=== PATIENT | female | born 1945 | race Caucasian/White ===

== ENCOUNTER 2017-03-01 19:36 | Inpatient (IN) | payer MEDICARE ==
--- NOTE | ~2017-03-01 | CN ---
Consultation Report [facility] [address] [place]. [address] NAME: CARLITOS WYMAN CORTEZ : 45 STATUS : ADM IN PAT#: [id number] AGE: 71 ADM/REG DATE : 03/01/17 MR#: [id number] REPORT SERV DATE: 03/02/17 DICTATED BY: INDIGO GARCIA III DATE: 03/02/17 REPORT STATUS : Draft TRANSCRIBED BY: MODL DATE: 03/02/17 CONSULTATION DATE OF CONSULTATION: 03/02/2017 HISTORY OF PRESENT ILLNESS: The patient is a 71-year-old white female with a 10-year history of multiple strokes and transient ischemic attacks. She has been in poor nutritional state for some time and has been at home on a hospital bed with an air mattress. She is admitted this time with pneumonia, sepsis, hypoxia and hypernatremia, but has been known to have decubitus ulcers of her hips and sacrum, which is the reason that Surgery and Wound Healing consult was requested. PAST MEDICAL HISTORY: She has had dementia, stroke and declining state of health according to her son, Wiliam, who is the second of four sons. She has had a history of blood clots, hypertension, high cholesterol. She had knee [place] [address] Hunt and has a history of significant arthritis and has had a cholecystectomy in the past. Has a history of anxiety disorder. HOME MEDICATIONS: Include Tylenol, Eliquis 5 mg twice a day, Celexa 20 mg daily. Recently started yesterday on clindamycin 150 mg t.i.d. and doxycycline 100 mg b.i.d., which have now been stopped. She has also been on Diflucan 150 mg daily, started yesterday as well. She also takes lisinopril 5 mg daily, melatonin 3 mg at bedtime, Lopressor 25 mg half a tablet twice a day, MS Contin 15 mg slow release every 12 hours, Percocet 7.5/325 twice a day, Zocor 10 mg at bedtime, and Santyl topically. The patient was admitted with sepsis and probable recurrent aspiration pneumonia, hypernatremia, dementia, late effects of CVA, and the hip ulcerations. The patient lives at home on a hospital bed with air mattress, and her is her main decision maker, assisted by the sons. The patient has reportedly been losing weight and being sustained on protein shakes. ALLERGIES: PENICILLIN. PHYSICAL EXAMINATION: GENERAL: She is an obtunded white female. No communication really elicitable. HEENT: Did not show lateralization. NECK: Quite stiff from osteoarthritic changes, presumably. MUSCULOSKELETAL: She was contractured in her trunk and extremities with flexion contractions of virtually every bendable area of her body. ABDOMEN: Soft, scaphoid, nontender with bowel sounds present. EXTREMITIES: Grossly atrophic. She has some abrasive changes of her heels bilaterally, but no true ulcerations. There is a small dry eschar on the lateral aspect of the right lateral foot that was not ulcerated per se. Her right hip shows a 5 x 3 x 3 stage IV soupy ulcer that tunneled about 2.5 cm at 6 o'clock position. This was quite deeply involving the Consultation Report [address] [place]. [address] NAME: CARLITOS WYMAN CORTEZ : 45 STATUS : ADM IN [facility]#: [id number] AGE: 71 ADM/REG DATE : 03/01/17 MR#: [id number] REPORT SERV DATE: 03/02/17 DICTATED BY: INDIGO GARCIA III DATE: 03/02/17 REPORT STATUS : Draft TRANSCRIBED BY: HEMANT DATE: 03/02/17 subcutaneous tissue down to the fascia. It was minimally tender with minimal induration around it. The sacral ulcer is 2.3 x 2.5 x 0.1 stage II decubitus changes with redness in a 4 cm diameter area, but some breakdown of the dermis in the central portion for the ulceration described. The left hip has a 2.1 x 2.0 x 0.2 stage III decubitus ulcer, which was with some erythema about 1 cm around the edges of the ulceration. Her pulses were present, but diminished in her pedal areas. LABORATORY DATA: Showed a low albumin. CBC with a white count which is 8.0, her hemoglobin and hematocrit 12.3 and 37.6, and platelets 267,000. IMPRESSION: She has multiple decubitus ulcers secondary to her strokes and malnutrition. Do not think aggressive heroic therapy would be indicated in this patient. Primarily, palliative care is the best option. With her nutritional status so adversely affected, healing these ulcers would hardly be an expectation. Discussed the situation with her son, Wiliam, who was present and advised them as above that the patient needed more comfort measures than aggressive debridement and therapy to the ulcers and the decision on the amount of aggression will be decided upon by the family. A feeding tube and nutritional support forcefully administered was not what the patient's son said that she had indicated that she would be willing to accept when she was more able to communicate. Orders will be left for care, including a Clinitron bed, Iodosorb gel to the right hip ulcer with packing with Iodosorb Santyl to the left hip and sacral areas with Mepitel covering on all three and heel protectors. There is no need for aggressive debridement on these ulcers at this time. JANNETTE/HEMANT Indigo Garcia III, M.D. / [id number] CC: Dick Witt M.D. [facility]
--- NOTE | ~2017-03-01 | DS ---
Discharge Summary [facility] [address] [place]. [address] NAME: CARLITOS WYMAN CORTEZ : 45 STATUS : DIS IN PAT#: [id number] AGE: 71 ADM/REG DATE : 03/01/17 MR#: [id number] REPORT SERV DATE: 03/05/17 DICTATED BY: ALETHEA TIRADO DATE: 03/04/17 REPORT STATUS : Draft TRANSCRIBED BY: MODL DATE: 03/04/17 ADMISSION DATE: 03/01/2017 DISCHARGE DATE: 03/04/2017 DISCHARGE DIAGNOSES: 1. Sepsis, present on admission. 2. Recurrent aspiration pneumonia. 3. Severe oropharyngeal dysphagia with deep penetration and/or silent aspiration of all consistencies on modified barium swallow. 4. Previous stroke with left hemiparesis. 5. Dementia. 6. Multiple decubitus ulcers. 7. Severe protein-calorie malnutrition. 8. Failure to thrive. 9. Hyponatremia. 10.Chronic pain syndrome. 11.Hypotension. 12.History of Crohn disease. 13.History of colon polyps. 14.History of DVT, on chronic Eliquis. 15.History of bowel and bladder incontinence. 16.History of rheumatoid arthritis. 17.History of recurrent urinary tract infections. 18.History of renal stones requiring lithotripsy. 19.History of anxiety and depression. OPERATIONS AND PROCEDURES: None. PRESENT ILLNESS: This is a 71-year-old white female who was triaged in the emergency room on 03/01/2017 at 1936 hours with shortness of breath and an O2 saturation of 89%. After evaluation in the emergency room, she was found to have an infiltrate on chest x-ray. She was referred to the Hospitalist Service for admission. She was seen by Dr. Baljeet Bynum and admitted as described on admission history and physical examination. Additional history included a several-month history of poor p.o. intake with strangling and choking on foods that led to a recent hospitalization at [facility] in January. She was hospitalized from 02/25/2017 to 02/28/2017. At the time of discharge, she still had pulmonary congestion according to her . At home, she had a temperature to 101. She was seen by Home Health Care and sent back to the hospital for further evaluation. Additional history included gradual progression of bilateral hip decubitus ulcers. ADDITIONAL HISTORY: Per Dr. Bynum. Discharge Summary [place] [place] [address] [place]. [address] NAME: CARLITOS WYMAN CORTEZ : 45 STATUS : DIS IN PAT#: [id number] AGE: 71 ADM/REG DATE : 03/01/17 MR#: [id number] REPORT SERV DATE: 03/05/17 DICTATED BY: ALETHEA TIRADO DATE: 03/04/17 REPORT STATUS : Draft TRANSCRIBED BY: HEMANT DATE: 03/04/17 PHYSICAL EXAMINATION: Per Dr. Bynum. ADMISSION LABORATORY: Per Dr. Bynum. HOSPITAL COURSE: She was admitted with: 1. Sepsis. 2. Recurrent aspiration pneumonia. 3. Hypernatremia. 4. Bilateral hip and sacral decubitus ulcers. 5. All the above occurring in the setting of the above-mentioned comorbidities. She was admitted to [address] [place] [address]. Cultures were obtained. She was started on IV cefepime and vancomycin. She was placed on D10. Wound Care consultation was obtained with Dr. Garcia. A DNR discussion with the patient's was done, and she was placed DNR limited. Her hospitalist care was by Dr. Witt on 03/02/2017 and 03/03/2017 and the undersigned on 03/04/2017. Dr. Garcia's impression was multiple decubitus ulcer secondary to strokes and malnutrition. He did not think aggressive heroic therapy was indicated. He suggested palliative care. He suggested a Clinitron bread, Iodosorb gel to the right hip ulcer with packing with Iodosorb Santyl to the left hip and sacral areas with Mepilex covering all three and heel protection. A modified barium swallow study was done on 03/03/2017. She exhibited deep penetration and/or silent aspiration of all consistencies presented. Strict n.p.o. status versus palliative care was recommended. Dr. Witt spoke with the patient's . Based on previous discussions with the patient, a PEG tube was not an option. Hospice consultation was recommended. The agreed. She was seen by [facility] on 03/03/2017. The agreed to hospice services at home. She was seen by me today in the presence of her . Her evaluation was reviewed. Hospice decision was reviewed. Speech therapy evaluation and treatment recommendations were reviewed. Her understood all the above and wanted to pursue with home with hospice. She is being discharged home with hospice today. Medications per Hospice. Discharge time greater than 30 minutes. DD/MODL Alethea Discharge Summary [address] [place] [address] NAME: CARLITOS WYMAN CORTEZ : 45 STATUS : DIS IN PAT#: [id number] AGE: 71 ADM/REG DATE : 03/01/17 MR#: [id number] REPORT SERV DATE: 03/05/17 DICTATED BY: ALETHEA TIRADO DATE: 03/04/17 REPORT STATUS : Draft TRANSCRIBED BY: HEMANT DATE: 03/04/17 [place] / [id number] CC: Alethea Tirado M.D.
--- NOTE | ~2017-03-01 | HP ---
History And Physical [place] [address] [facility] [place]. [address] NAME: CARLITOS WYMAN CORTEZ : 45 STATUS : ADM IN [facility]#: [id number] AGE: 71 ADM/REG DATE : 03/01/17 MR#: [id number] REPORT SERV DATE: 03/02/17 DICTATED BY: REIC KHAN DATE: 03/01/17 REPORT STATUS : Draft TRANSCRIBED BY: MODL DATE: 03/01/17 DATE OF ADMISSION: 03/01/2017 CHIEF COMPLAINT: A 71-year-old female debilitated from stroke and dementia, now presenting with pressure sores and recurrent aspiration pneumonia. HISTORY OF PRESENT ILLNESS: The patient's history was obtained through careful interview with the patient's coupled with review of [facility] medical records. The patient was unable to provide a history herself. The patient has suffered strokes in the past and apparently a stroke in October 2016 left the patient even more debilitated with increasing dysphagia as well. Over these last few months, the patient has had difficulty with dietary intake, some times strangling and choking on food, and it seems that this has led to a recent problem with breathing and coughing for which she had to go to the hospital at [facility] on 02/25/2017. When she was hospitalized there, she was diagnosed with aspiration pneumonia and urinary tract infection. She was hospitalized between 02/25/2017 and 02/28/2017 with antibiotics and supportive care. Although she improved somewhat, she still had a "rattle in her chest" according to the . She was able to come home just on the night prior to admission and immediately began to spike fevers again up to 101.0. She took Tylenol overnight and seemed to feel better. Then, on the day of admission, Home Health Care came to visit the patient, they found a fever of 101.2, increasing shortness of breath and cough, and the patient just looking very debilitated and ill and felt she had to come back to the hospital. Over these last few months, the patient has had gradual progression of bilateral hip decubitus ulcers, the right seems to be worse than the left, and there has been outpatient discussion regarding wound VAC placement through a wound care center near [place], [place]. Because the patient has been rotated from one hip to the other, she has also developed a sacral decubitus ulcer as well. The patient has chronic back pain, seems to have pain related to her decubitus ulcers, but when she does communicate with her about pain, she states "its all over." She is unable to describe a precise quality, location, or severity of pain because of dementia. The claims she has not had a significant bowel movement since 02/13/2017. She definitely has no diarrhea. No nausea or vomiting. He believes this recent illness has increased her baseline confusion, and now it has gotten to a point where sometimes she does not even recognize her . REVIEW OF SYSTEMS: Otherwise, a 14-point review of systems was obtained and was negative although could question validity in light of the patient's inability to answer for herself. History And Physical [place] [address] [facility] [place]. [address] NAME: CARLITOS WYMAN CORTEZ : 45 STATUS : ADM IN [facility]#: [id number] AGE: 71 ADM/REG DATE : 03/01/17 MR#: [id number] REPORT SERV DATE: 03/02/17 DICTATED BY: EIRC KHAN DATE: 03/01/17 REPORT STATUS : Draft TRANSCRIBED BY: HEMANT DATE: 03/01/17 PAST MEDICAL HISTORY: 1. Stroke with debilitation, most recently in 10/2016. 2. Pneumonia. 3. Hypertension. 4. Crohn's disease, seen by Dr. Prakash Boogie. 5. Dementia. 6. DVT, 2011, on chronic Eliquis. 7. Anxiety/depression. 8. Nephrolithiasis. 9. Chronic back pain, on chronic pain management. 10.Rheumatoid arthritis. 11.Peptic ulcer disease. 12.Urinary tract infections. 13.Group B strep cellulitis. 14.Colon polyps. 15.Dysphagia with modified diet. 16.Sacral and hip decubitus ulcers. 17.Bladder and bowel incontinence. PAST SURGICAL HISTORY: 1. Right knee surgery. 2. Cholecystectomy. ALLERGIES: TO PENICILLIN. SOCIAL HISTORY: She has never been a smoker herself but has been exposed to secondhand tobacco from her . She is and her is her primary care provider at home. She has children, 13 grandchildren, and 3 great grandchildren. She used to drink occasional alcohol before her recent illness. She is wheelchair bound now. She lives in [place], [place]. FAMILY HISTORY: Diabetes, stroke, and heart disease. CURRENT MEDICATIONS: Include Eliquis 5 mg p.o. b.i.d., Celexa 20 mg daily, clindamycin 150 mg p.o. t.i.d., doxycycline 100 mg p.o. b.i.d., Diflucan 150 mg p.o. daily, lisinopril 5 mg p.o. daily, melatonin 3 mg p.o. daily, Lopressor 12.5 mg p.o. b.i.d., MS Contin 15 mg p.o. b.i.d., Percocet p.r.n., Zocor 10 mg p.o. daily, and Santyl applied. PHYSICAL EXAMINATION: VITAL SIGNS: Temperature 101.0, pulse 101, blood pressure 103/78, respiratory rate 18, and O2 saturation 89% on room air. GENERAL: A debilitated and chronically ill-appearing female, even cachectic in appearance, but in no evidence of acute distress. HEENT: Pupils equal, round, and reactive to light. No conjunctival pallor. No scleral icterus. Nares are patent. Oropharynx is clear of obstruction. Moist mucous membranes. NECK: Trachea midline. No thyromegaly. LYMPH: No cervical lymphadenopathy. No supraclavicular lymphadenopathy. History And Physical [address] [address] NAME: CARLITOS WYMAN CORTEZ : 45 STATUS : ADM IN [facility]#: [id number] AGE: 71 ADM/REG DATE : 03/01/17 MR#: [id number] REPORT SERV DATE: 03/02/17 DICTATED BY: ERIC KHAN DATE: 03/01/17 REPORT STATUS : Draft TRANSCRIBED BY: HEMANT DATE: 03/01/17 RESPIRATORY: Scattered rhonchi are what predominate on exam. No rales. I do not appreciate any wheezes. She will not comply with examination for egophony testing. She has a nonlabored respiratory effort though. CARDIOVASCULAR: Tachycardic. Regular rhythm. No murmurs, rubs, or gallops. No extremity edema is appreciated. ABDOMEN: Soft, nontender, and nondistended. Normal bowel sounds auscultated throughout. No hepatosplenomegaly. DERMATOLOGIC: Warm and dry extremities. No pallor. No cyanosis. PSYCHIATRIC: A flat affect. Irritable mood. She is alert, appropriate, non-agitated, and disoriented x3. LABORATORY DATA: White blood cell count 14, hemoglobin 12, hematocrit 38, and platelets 291. Sodium 153, potassium 3.3, chloride 119, bicarb 23, BUN 13, creatinine 0.87, glucose 97, and albumin 1.6. Influenza negative. Liver enzymes within normal limits. ABG demonstrates a pH of 7.41, a PaCO2 of 37, a PaO2 of 54, and a bicarb of 22 on room air. STUDIES: 1. Chest x-ray, by my own evaluation, shows both a left lower lung pneumonia and a right middle lobe pneumonia compared to old x-ray. 2. EKG, by my own evaluation, shows sinus rhythm and left atrial abnormality. ASSESSMENT AND PLAN: 1. Sepsis with recurrent aspiration pneumonia. The patient has fever of 101.0, white blood count of 14, tachycardia, and hypoxic respiratory failure. We will check a lactic acid, check a swallow evaluation, check blood cultures, check urinalysis (recent urinary tract infection), and start on IV cefepime and IV vancomycin. 2. Hypernatremia. We will place on D10 water and IV fluids for now and monitor closely. 3. Dementia. 4. Late effects of stroke. 5. Bilateral hip and sacral decubitus ulcers. Check a wound culture which I did at the bedside for the patient's largest deep right hip ulcer which appears to be stage IV currently with minimal purulent drainage. The patient actually on her sacrum has the most erythematous and hot ulcer that could be acutely infected with cellulitis; will turn every 2 hours, obtain a wound care consult and a consult with wound surgeon Dr. Melendez, we will start her on IV vancomycin specifically. 6. DNR discussion. The patient's wishes prior to becoming so severely debilitated and demented was to never be intubated or have CPR, and so we have decided to make the patient a limited code with no intubation, no CPR, and no defibrillation. KPL/MODL Eric Khan M.D. / [id number] History And Physical [address] [address] NAME: CARLITOS WYMAN CORTEZ : 45 STATUS : ADM IN PAT#: [id number] AGE: 71 ADM/REG DATE : 03/01/17 MR#: [id number] REPORT SERV DATE: 03/02/17 DICTATED BY: ERIC KHAN DATE: 03/01/17 REPORT STATUS : Draft TRANSCRIBED BY: HEMANT DATE: 03/01/17 CC: Santo Drummond M.D.
[~2017-03-01 19:36] MED LIST: C25 PO; C5 PO; CELEXA20 PO; CYMBALTA60 PO; DSS PO; EXELON9.5T PO; EXELON9.5T TOP; FLECTOR1.3 % TOP; L20 PO; LEVAQUIN750 MG PO; MIRALAXPKT PO; MSCONT15 PO; PENTASA500 MG PO; PERCOCET1 TA2 PO; PRIN20 PO; PRIN5 PO; ROCEPHIN2 G2 IV; ROXICODONE15 MG PO; SKELAXIN8 PO; VOLTAREN1 % TOP; Vitamin D IM; ZESTRIL5 MG PO; ZOCOR10 PO
[2017-03-01 20:09] LABS: ALLENS TEST Pos; BE (BASE EXCESS) -1.8 MEQ/L (0 +/- 2.5); CARBOXYHEMOGLOBIN 1.7 % (0-3); HCO3 (ACTUAL BICARBONATE) 22.5 MEQ/L (23-27); HEMOBLOGIN CONTENT 12.4 G/DL (12-16); INSTRUMENT SERIAL # 8087; METHEMOGLOBIN 0.1 % (0-3); O2 CONTENT 15.3 VOL% (18-24); OPERATOR ID 17589; PCO2 (CO2 TENSION) 37 MMHG (35-45); PO2 (O2 TENSION) 54 MMHG (79-93); SAMPLE Arterial; pH 7.41 (7.37-7.43)
[2017-03-01 21:06] LABS: A/G RATIO 0.4 (0.7-1.9); ALBUMIN 1.6 G/DL (3.5-5.0); ALKALINE PHOSPHATASE 62 U/L (45-117); BUN (BLOOD UREA NITROGEN) 13 MG/DL (6-23); CALCIUM, SERUM 8.4 MG/DL (8.5-10.4); CHLORIDE, SERUM 119 MMOL/L (96-112); CO2 (CARBON DIOXIDE) 23 MMOL/L (24-34); CREATININE 0.87 MG/DL (0.55-1.02); GFR AFRICAN AMERICAN 78 ML/MIN (>=60); GFR NON AFRICAN AMERICAN 67 ML/MIN (>=60); GLOBULIN 4.2 G/DL (2.5-4.1); GLUCOSE, SERUM 97 MG/DL (60-99); POTASSIUM, SERUM 3.3 MMOL/L (3.5-5.3); SGOT(AST) 21 U/L (5-40); SGPT(ALT) 10 U/L (5-65); SODIUM, SERUM 153 MMOL/L (135-148); TOTAL BILIRUBIN 0.3 MG/DL (0-1.2); TOTAL PROTEIN 5.8 G/DL (6.0-8.5)
[2017-03-01 21:12] LABS: INFLUENZA A SCREEN NEGATIVE (NEGATIVE); INFLUENZA B SCREEN NEGATIVE (NEGATIVE)
[2017-03-01 21:37] LABS: BASOPHILS 0.1 %; BASOPHILS ABSOLUTE 0.02 10/3/uL (0.0-0.16); EOSINOPHILS 0.2 %; EOSINOPHILS ABSOLUTE 0.03 10/3/uL (0.0-0.53); ER CBC TAT 0 Hrs 05 Mins; HEMOGLOBIN 12.5 g/dL (12.0-16.0); IMMATURE GRANULOCYTES 0.5 %; IMMATURE GRANULOCYTES ABSOLUTE 0.07 10/3/uL (0.0-0.11); LYMPHOCYTES 22.6 %; LYMPHOCYTES ABSOLUTE 3.17 10/3/uL (0.67-4.30); MEAN CORPUS HGB CONC 32.9 g/dL (32.0-36.0); MEAN CORPUSCULAR HEMOGLOB 28.7 pg (26.0-34.0); MEAN CORPUSCULAR VOLUME 87.2 fL (80-100); MEAN PLATELET VOLUME 11.4 fL (9.2-13.0); MONOCYTES ABSOLUTE 1.12 10/3/uL (0.21-1.20); NEUTROPHILS 68.6 %; NEUTROPHILS ABSOLUTE 9.59 10/3/uL (2.02-8.40); PLATELET COUNT 291 10/3/uL (150-400); RBC DISTRIBUTION WIDTH 15.7 % (12.0-16.0); RED CELL COUNT 4.36 10/6/uL (4.0-5.6)
[2017-03-01 21:39] LABS: MANUAL DIFF NO %
[2017-03-01] MEDS ORDERED: CLINDA150 PO (22:19)
[2017-03-01] MEDS ORDERED: FLUCON150 PO (22:20)
[2017-03-01] MEDS ORDERED: CELEXA20 PO (22:20)
[2017-03-01] MEDS ORDERED: MONODOX100 MG PO (22:20)
[2017-03-01] MEDS ORDERED: SANTYL TOP (22:21)
[2017-03-01] MEDS ORDERED: PRIN5 PO (22:21)
[2017-03-01] MEDS ORDERED: LOP25 PO (22:23)
[2017-03-01] MEDS ORDERED: MSCONT15 PO (22:23)
[2017-03-01] MEDS ORDERED: ZOCOR10 PO (22:24)
[2017-03-01] MEDS ORDERED: ELIQUIS 5 MG TAB5 MG PO (22:24)
[2017-03-01] MEDS ORDERED: PERCOCET 7.5/321 TAB PO (22:24)
[2017-03-01] MEDS ORDERED: TYLENOL 16160 MG/51 PO/LIQ (22:25)
[2017-03-01] MEDS ORDERED: MELA3 PO (22:25)
[2017-03-02 06:05] LABS: BASOPHILS 0.1 %; BASOPHILS ABSOLUTE 0.01 10/3/uL (0.0-0.16); EOSINOPHILS 0 %; HEMATOCRIT 37.6 % (36.0-48.0); HEMOGLOBIN 12.3 g/dL (12.0-16.0); IMMATURE GRANULOCYTES 0.5 %; IMMATURE GRANULOCYTES ABSOLUTE 0.04 10/3/uL (0.0-0.11); LYMPHOCYTES 9.9 %; LYMPHOCYTES ABSOLUTE 0.79 10/3/uL (0.67-4.30); MANUAL DIFF NO %; MEAN CORPUS HGB CONC 32.7 g/dL (32.0-36.0); MEAN CORPUSCULAR HEMOGLOB 28.5 pg (26.0-34.0); MEAN PLATELET VOLUME 10.9 fL (9.2-13.0); MONOCYTES 0.4 %; MONOCYTES ABSOLUTE 0.03 10/3/uL (0.21-1.20); NEUTROPHILS 89.1 %; NEUTROPHILS ABSOLUTE 7.13 10/3/uL (2.02-8.40); PLATELET COUNT 267 10/3/uL (150-400); RBC DISTRIBUTION WIDTH 15.6 % (12.0-16.0); RED CELL COUNT 4.32 10/6/uL (4.0-5.6)
[2017-03-02 06:09] LABS: INTERNATIONAL NORMAL RATI 1.8 UNITS (-); PARTIAL THROMBO TIME 35.9 SEC (22.5-37.2); PROTIME (NOT ORD) 20.8 SEC (12.0-14.5)
[2017-03-02 06:28] LABS: A/G RATIO 0.4 (0.7-1.9); ALBUMIN 1.6 G/DL (3.5-5.0); ALKALINE PHOSPHATASE 66 U/L (45-117); BUN (BLOOD UREA NITROGEN) 15 MG/DL (6-23); CALCIUM, SERUM 8.1 MG/DL (8.5-10.4); CHLORIDE, SERUM 118 MMOL/L (96-112); CO2 (CARBON DIOXIDE) 21 MMOL/L (24-34); CPK 33 U/L (0-200); CREATININE 0.86 MG/DL (0.55-1.02); GFR AFRICAN AMERICAN 79 ML/MIN (>=60); GFR NON AFRICAN AMERICAN 68 ML/MIN (>=60); GLOBULIN 4.3 G/DL (2.5-4.1); POTASSIUM, SERUM 3.6 MMOL/L (3.5-5.3); SGOT(AST) 24 U/L (5-40); SGPT(ALT) 12 U/L (5-65); SODIUM, SERUM 149 MMOL/L (135-148); TOTAL BILIRUBIN 0.3 MG/DL (0-1.2); TOTAL PROTEIN 5.9 G/DL (6.0-8.5); TROPONIN I 0.02 NG/ML (<0.05); ULTRASENSITIVE TSH 0.939 MCIU/ML (0.358-3.740)
[2017-03-02 06:29] LABS: CK-MB < 0.5 NG/ML; GLUCOSE, SERUM 206 MG/DL (60-99)
[2017-03-02 07:56] LABS: SED RATE 26 MM/HR (0-20)
[2017-03-02 17:57] LABS: ASCORBIC ACID (UR NOT ORDER) NEG (NEG); BILIRUBIN, URINE NEGATIVE (NEG); KETONE, URINE TRACE MG/DL (NEG); LEUKOCYTE ESTERASE(NOT OR MOD (NEG); WBC (NOT ORDERED) (RFLEX) 56 (0-5)
[2017-03-03 05:56] LABS: BASOPHILS 0 %; EOSINOPHILS 0 %; HEMOGLOBIN 10.7 g/dL (12.0-16.0); IMMATURE GRANULOCYTES 0.7 %; IMMATURE GRANULOCYTES ABSOLUTE 0.08 10/3/uL (0.0-0.11); LYMPHOCYTES 7.5 %; LYMPHOCYTES ABSOLUTE 0.89 10/3/uL (0.67-4.30); MEAN CORPUS HGB CONC 32.8 g/dL (32.0-36.0); MEAN CORPUSCULAR HEMOGLOB 28.3 pg (26.0-34.0); MEAN CORPUSCULAR VOLUME 86.2 fL (80-100); MEAN PLATELET VOLUME 10.8 fL (9.2-13.0); MONOCYTES ABSOLUTE 0.83 10/3/uL (0.21-1.20); NEUTROPHILS 84.8 %; NEUTROPHILS ABSOLUTE 9.99 10/3/uL (2.02-8.40); PLATELET COUNT 269 10/3/uL (150-400); RBC DISTRIBUTION WIDTH 15.7 % (12.0-16.0); RED CELL COUNT 3.78 10/6/uL (4.0-5.6)
[2017-03-03 05:57] LABS: HEMATOCRIT 32.6 % (36.0-48.0); MANUAL DIFF NO %; WHITE BLOOD CELLS 11.8 10/3/uL (4.5-10.5)
[2017-03-03 06:15] LABS: ALBUMIN 1.4 G/DL (3.5-5.0); BUN (BLOOD UREA NITROGEN) 21 MG/DL (6-23); CALCIUM, SERUM 7.8 MG/DL (8.5-10.4); CHLORIDE, SERUM 116 MMOL/L (96-112); CO2 (CARBON DIOXIDE) 20 MMOL/L (24-34); CREATININE 1.01 MG/DL (0.55-1.02); GFR AFRICAN AMERICAN 65 ML/MIN (>=60); GFR NON AFRICAN AMERICAN 56 ML/MIN (>=60); GLUCOSE, SERUM 139 MG/DL (60-99); PHOSPHORUS, SERUM 1.6 MG/DL (2.5-4.5); SODIUM, SERUM 148 MMOL/L (135-148)
[2017-03-04 06:35] LABS: BUN (BLOOD UREA NITROGEN) 21 MG/DL (6-23); CHLORIDE, SERUM 110 MMOL/L (96-112); CO2 (CARBON DIOXIDE) 20 MMOL/L (24-34); CREATININE 1.13 MG/DL (0.55-1.02); GFR AFRICAN AMERICAN 57 ML/MIN (>=60); GFR NON AFRICAN AMERICAN 49 ML/MIN (>=60); POTASSIUM, SERUM 3.4 MMOL/L (3.5-5.3)
[2017-03-04 06:36] LABS: CALCIUM, SERUM 6.9 MG/DL (8.5-10.4); GLUCOSE, SERUM 419 MG/DL (60-99); SODIUM, SERUM 134 MMOL/L (135-148)
[2017-03-04 07:13] LABS: PHOSPHORUS, SERUM 1.2 MG/DL (2.5-4.5)
== END 2017-03-04 13:20 | disposition hospice, home (50) | DRG 871 ==
LOC: ER 19:36 → 6NO 22:48
PROVIDERS: Hospitalist; Internal Medicine
DX: A41.9 Sepsis, unspecified organism (principal); J69.0 Pneumonitis due to inhalation of food and vomit; E43 Unspecified severe protein-calorie malnutrition; E87.0 Hyperosmolality and hypernatremia; L89.214 Pressure ulcer of right hip, stage 4; L89.152 Pressure ulcer of sacral region, stage 2; L89.223 Pressure ulcer of left hip, stage 3; I69.354 Hemiplegia and hemiparesis following cerebral infarction affecting left non-dominant side; K50.90 Crohn's disease, unspecified, without complications; R13.12 Dysphagia, oropharyngeal phase; F03.90 Unspecified dementia, unspecified severity, without behavioral disturbance, psychotic disturbance, mood disturbance, and anxiety; G89.4 Chronic pain syndrome; Z51.5 Encounter for palliative care; R62.7 Adult failure to thrive; F41.9 Anxiety disorder, unspecified; F32.9 Major depressive disorder, single episode, unspecified; M06.9 Rheumatoid arthritis, unspecified; E78.00 Pure hypercholesterolemia, unspecified; M19.90 Unspecified osteoarthritis, unspecified site; Z68.20 Body mass index [BMI] 20.0-20.9, adult; Z87.442 Personal history of urinary calculi; Z87.440 Personal history of urinary (tract) infections; Z86.718 Personal history of other venous thrombosis and embolism; Z79.02 Long term (current) use of antithrombotics/antiplatelets; Z90.49 Acquired absence of other specified parts of digestive tract; Z96.659 Presence of unspecified artificial knee joint; Z88.0 Allergy status to penicillin
CPT/HCPCS: 36600; 71010; 74230; 80048; 80053; 80069; 81001; 82550; 82553; 82805; 82962; 83605; 83735; 83880; 84100; 84145; 84443; 84484; 85025; 85610; 85652; 85730; 87040; 87070; 87077; 87086; 87186; 87205; 87804; 92611-GN; 93005; 94640; 96374; 96375; 99285; A9270-GY; G8996-CN-GN; G8997-CN-GN; G8998-CN-GN; J0692; J2930; J3370